=== PATIENT | female | born 1995 | race American Indian/Alaskan Native ===

== ENCOUNTER 2019-12-15 08:01 | Emergency (ER) | payer SELFPAY ==
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
[2019-12-15] MEDS ORDERED: ZIPRASIDONE MESYLATE 20 MG VIAL IM ONE ×2 (08:36→13:42)
[2019-12-15] MEDS ORDERED: WATER FOR INJ Sterile (PF) 10 ML ONE ×2 (08:41→13:51)
[2019-12-15 09:11] LABS: Basophils % (Auto) 0.6 % (0.0-1.8); Eosinophils % (Auto) 0.4 % (0.0-4.3); Hematocrit 41.4 % (30.3-42.9); Hemoglobin 14.5 gm/dl (10.1-14.3); Lymphocytes # (Auto) 1.7 K/mm3 (1.2-5.4); Lymphocytes % (Auto) 27.4 % (13.4-35.0); Mean Corpuscular HGB Conc 35 % (30-34); Mean Corpuscular Volume 100 fl (79-97); Monocytes # (Auto) 0.7 K/mm3 (0.0-0.8); Monocytes % (Auto) 11.6 % (0.0-7.3); Platelet Count 242 K/mm3 (140-440); Red Blood Count 4.15 M/mm3 (3.65-5.03); Red Cell Distribution Width 13.5 % (13.2-15.2)
[2019-12-15 09:32] LABS: Blood Urea Nitrogen 10 mg/dL (7-17); Hemolysis Index 2
[2019-12-15 09:41] LABS: Bilirubin,Urine NEG (Negative); Blood,Urine NEG (Negative); Color,Urine Yellow (Yellow); HCG Qualitative,Urine Negative (Negative); Protein,Urine <15 mg/dL mg/dL (Negative); Urobilinogen,Urine < 2.0 mg/dL (<2.0)
[2019-12-15 09:43] LABS: BUN/Creatinine Ratio 14
[2019-12-15 09:51] LABS: Benzodiazepines Screen,Urine Negative; Cocaine Screen,Urine Negative; Methadone Screen,Urine Negative; Opiate Screen,Urine Negative
[2019-12-15 10:05] LABS: Amphetamine Screen,Urine Positive; Cannabinoid Screen,Urine Positive
[2019-12-16 08:42] VITALS: BP 120/63
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
== END 2019-12-16 11:45 ==
LOC: ED 08:01
DX: F23 Brief psychotic disorder (principal)
CPT/HCPCS: 36415; 80048; 80307; 81001; 81025; 85025; 96372; 99285; J3486; 80320; G0480